=== PATIENT | male | born 1970 | race Caucasian/White ===

== ENCOUNTER → 2018-10-07 | Outpatient (REF) | payer MEDICAID ==
[2018-10-07 13:45] LABS: BASO % 0.7 % (0.0-1.0); EOS # 0.2 10^3/uL (0.0-0.50); EOS % 2.8 % (0.0-3.0); HEMATOCRIT 45.4 % (42.0-52.0); HEMOGLOBIN 15.2 g/dl (13.5-17.5); LYMPH # 1.2 10^3/uL (1.5-4.5); LYMPH % 20.1 % (24.0-44.0); MEAN CORPUSCULAR HEMOGLOBIN 32.5 pg (27.0-33.0); MEAN CORPUSCULAR HGB CONC 33.5 g/dl (32.0-36.5); MONO # 0.6 10^3/uL (0.0-0.8); MONO % 9.7 % (0.0-5.0); NEUTROPHILS % 66.2 % (36.0-66.0); PLATELET COUNT, AUTOMATED 206 10^3/uL (150-450); RED BLOOD COUNT 4.68 10^6/uL (4.30-6.10)
[2018-10-07 14:18] LABS: ALBUMIN 3.6 GM/DL (3.2-5.2); ALT/SGPT 59 U/L (12-78); BILIRUBIN,TOTAL 0.4 MG/DL (0.2-1.0); BLOOD UREA NITROGEN 14 MG/DL (7-18); CALCIUM LEVEL 8.6 MG/DL (8.5-10.1); CARBON DIOXIDE LEVEL 29 MEQ/L (21-32); CHLORIDE LEVEL 100 MEQ/L (98-107); CHOLESTEROL LEVEL 174 MG/DL (<200); CHOLESTEROL RISK RATIO 3.866 (<5); CPK CREATINE PHOSPHOKINASE 141 U/L (39-308); CREATININE FOR GFR 0.78 MG/DL (0.70-1.30); FREE T4 1.23 NG/DL (0.76-1.46); GLOMERULAR FILTRATION RATE > 60.0 (>56); GLUCOSE, FASTING 184 MG/DL (70-100); HDL CHOLESTEROL 45 MG/DL (>40); LDL CHOLESTEROL 95 MG/DL (<100); NON-HDL-C 129 MG/DL; POTASSIUM SERUM 4.6 MEQ/L (3.5-5.1); SODIUM LEVEL 137 MEQ/L (136-145); TOTAL PROTEIN 7.8 GM/DL (6.4-8.2); TRIGLYCERIDES LEVEL 168 MG/DL (<150)
[2018-10-07 14:19] LABS: HEMOGLOBIN A1c 8.4 %
== END ==
LOC: M SFHCPLAZ 11:49
PROVIDERS: ATTEND Physician Assistant Medical
DX: E78.2 Mixed hyperlipidemia (principal); E03.9 Hypothyroidism, unspecified; I10 Essential (primary) hypertension; E11.9 Type 2 diabetes mellitus without complications

== ENCOUNTER → 2018-10-15 | Outpatient (REF) | payer MEDICAID ==
[2018-10-15 13:30] LABS: APPEARANCE, URINE CLEAR (CLEAR); BACTERIA, URINE AUTO NEGATIVE (NEGATIVE); BILIRUBIN, URINE AUTO NEGATIVE (NEGATIVE); BLOOD, URINE BLOOD NEGATIVE (NEGATIVE); COLOR, URINE YELLOW (YELLOW); GLUCOSE, URINE (UA) AUTO NEGATIVE (NEGATIVE); KETONE, URINE AUTO NEGATIVE (NEGATIVE); LEUKOCYTE ESTERASE, URINE AUTO NEGATIVE (NEGATIVE); NITRITE, URINE AUTO NEGATIVE (NEGATIVE); PROTEIN, URINE AUTO NEGATIVE (NEGATIVE); RBC, URINE AUTO 0 /HPF (0-3); SPECIFIC GRAVITY URINE AUTO 1.014 (1.002-1.035); SQUAMOUS EPITHELIAL CELL UR AU 0 /HPF (0-6); WBC, URINE AUTO 0 /HPF (0-3)
== END ==
LOC: M LAB REF 12:45
PROVIDERS: ATTEND Physician Assistant Medical
DX: R36.1 Hematospermia (principal)

== ENCOUNTER → 2018-10-29 | Outpatient (CLI) | payer MEDICAID, OTHER ==
--- NOTE | 2018-10-29 11:48 | REP ---
Clinical: Cough . Comparison: None . Technique: PA and lateral. Findings: The mediastinum and cardiac silhouette are normal. The lung goodson are clear and without acute consolidation, effusion, or pneumothorax. The skeletal structures are intact and normal. Impression: 1. No acute cardiopulmonary process. Electronically Signed by Steve Crandall MD 10/29/2018 11:40 A
== END ==
LOC: M SMT 11:17
PROVIDERS: ATTEND Physician Assistant Medical
DX: R05 Cough (principal)

== ENCOUNTER → 2018-11-10 | Outpatient (CLI) | payer OTHER ==
[~2018-11-10] MED LIST: E-Z-GAS II EFFERVESCENT PACKET (SODIUM BICARB./CITRIC ACID/SIMETHICONE) As Ordered ONE; E-Z-HD 98% w/w 340GM SUSP BTL As Ordered ONE; E-Z-PAQUE 96% w/w SUSP 176GM BTL As Ordered ONE
--- NOTE | 2018-11-10 20:38 | REP ---
Examination Requested: Upper G.I. Series With KUB Reason For Exam: Oral phase dysphasia Upper GI Air Contrast The procedure was performed by VIN Richards, under the direct supervision of Dr. Hager. The images were reviewed with Dr. Hager. The algologist film shows no organomegaly or pathological masses. The intestinal gas pattern appears normal. Liquid barium and gas producing crystals were given in the erect position as well as liquid barium in the prone oblique position in order to perform a double contrast upper GI examination. The oral and pharyngeal stages of deglutition were unremarkable. There are osteophytes of the C5/C6 vertebral bodies indenting the posterior aspect of the esophagus. Esophageal transport is efficient and there is no esophagitis, stricture, or mucosal ring noted. There is no hiatal hernia. Gastroesophageal reflux was visualized to the level of the brennon. The stomach ng are normally outlined. The rugal folds are smooth and regular. There is no gastritis, neoplasm, ulcer disease noted. The duodenal ng are normally outlined. The mucosal folds are smooth and regular. There is no duodenitis, peptic ulcer disease, or neoplasm noted. The visualized portion of the proximal small bowel appears normal in course and caliber. Impression: 1. Gastroesophageal reflux to the level of the brennon. 2. C5/C6 osteophytes indenting the posterior wall of the esophagus. 0.6 minutes of fluoroscopy time was utilized for this procedure. Some fluoroscopic images are performed with last image hold technology. These images require no additional radiation. Reviewed by VIN Burroughs 11/10/2018 03:22 P Electronically Signed by Andrés Hager MD 11/10/2018 08:28 P
== END ==
LOC: M RAD 08:22
PROVIDERS: ATTEND Physician Assistant Medical
DX: R13.11 Dysphagia, oral phase (principal); K21.9 Gastro-esophageal reflux disease without esophagitis; K22.8 Other specified diseases of esophagus

== ENCOUNTER → 2019-01-02 | Outpatient (CLI) | payer OTHER ==
--- NOTE | 2019-01-05 23:21 | SLEEPCENT ---
DATE OF PROCEDURE: 01/02/2019 Ordered by: CANDY Sawyer Nocturnal polysomnography was performed for the titration of pressure therapy in this patient with obstructive sleep apnea syndrome. Apnea-hypopnea index 41.4. For testing, a [employer] [place] full face mask of large size was used, 4 cm of water pressure were applied to the circuit and the lights were extinguished. 7 hours and 14 minutes of data were reviewed. There were 378.5 minutes of sleep identified. Sleep latency was normal at 12.5 minutes. REM latency was short at 45.5 minutes. Sleep architecture was good with three REM cycles. Overall sleep efficiency was 88.4%. The electrocardiogram showed a sinus rhythm with an average heart rate of 54 beats per minute. EEG showed reasonably normal waveforms for awake and sleep. Respiratory events were fully palliated with C-PAP at a pressure of 16. There was minimal limb activity and remaining measures of sleep physiology were normal. IMPRESSION Obstructive sleep apnea syndrome (G47.33) RECOMMENDATIONS Nightly use of pressure therapy 15 cm of water.
== END ==
LOC: M SLEEP 20:00
PROVIDERS: ATTEND Nurse Practitioner Family
DX: G47.33 Obstructive sleep apnea (adult) (pediatric) (principal)

== ENCOUNTER → 2019-02-04 | Outpatient (REF) | payer OTHER ==
[2019-02-04 18:20] LABS: HEMOGLOBIN A1c 8.1 %
[2019-02-04 18:33] LABS: ALBUMIN 4.2 GM/DL (3.2-5.2); ALT/SGPT 79 U/L (12-78); BILIRUBIN,TOTAL 0.8 MG/DL (0.2-1.0); BLOOD UREA NITROGEN 18 MG/DL (7-18); CALCIUM LEVEL 9.2 MG/DL (8.5-10.1); CARBON DIOXIDE LEVEL 28 MEQ/L (21-32); CHLORIDE LEVEL 100 MEQ/L (98-107); CREATININE FOR GFR 0.86 MG/DL (0.70-1.30); GLOMERULAR FILTRATION RATE > 60.0 (>56); GLUCOSE, FASTING 111 MG/DL (70-100); POTASSIUM SERUM 4.7 MEQ/L (3.5-5.1); SODIUM LEVEL 136 MEQ/L (136-145); TOTAL PROTEIN 7.9 GM/DL (6.4-8.2)
== END ==
LOC: M SFHCPLAZ 15:42
PROVIDERS: ATTEND Physician Assistant Medical
DX: E11.9 Type 2 diabetes mellitus without complications (principal)

== ENCOUNTER → 2019-02-14 | Outpatient (CLI) | payer OTHER ==
--- NOTE | 2019-02-15 08:22 | REP ---
Clinical: Elevated liver function tests. Technique: Real time infante scale ultrasound examination using curved array transducer. Findings: Liver is increased echogenicity with decreased through transmission suggesting fatty infiltration and/or hepatocellular disease. No focal hepatic lesion identified. The pancreas is incompletely evaluated but visualized portions appear normal. The gallbladder is unremarkable and without gallstones, wall thickening, or pericholecystic fluid. No biliary ductal dilatation is appreciated and the common bile duct measures 2.6 mm diameter. Right kidney is normal in reniform shape and measures 12.6 x 5.5 x 6.3 cm without hydronephrosis. Impression: Hepatosteatosis/hepatocellular disease. No focal hepatic lesion identified. Electronically Signed by Steve Crandall MD 02/15/2019 08:13 A
== END ==
LOC: M RAD 08:17
PROVIDERS: ATTEND Physician Assistant Medical
DX: R94.5 Abnormal results of liver function studies (principal)

== ENCOUNTER → 2019-05-02 | Outpatient (REF) | payer OTHER ==
[2019-05-02 18:45] LABS: ALBUMIN 3.9 GM/DL (3.2-5.2); ALT/SGPT 41 U/L (12-78); BILIRUBIN,TOTAL 0.6 MG/DL (0.2-1.0); BLOOD UREA NITROGEN 16 MG/DL (7-18); CALCIUM LEVEL 9.3 MG/DL (8.5-10.1); CARBON DIOXIDE LEVEL 26 MEQ/L (21-32); CHLORIDE LEVEL 102 MEQ/L (98-107); CK-MB VALUE MASS 1.6 NG/ML (<3.6); CPK CREATINE PHOSPHOKINASE 162 U/L (39-308); CREATININE FOR GFR 0.86 MG/DL (0.70-1.30); GLOMERULAR FILTRATION RATE > 60.0 (>56); GLUCOSE, FASTING 80 MG/DL (70-100); MB/CK RELATIVE INDEX 0.99 (< OR =4); POTASSIUM SERUM 4.4 MEQ/L (3.5-5.1); SODIUM LEVEL 137 MEQ/L (136-145); TROPONIN I < 0.02 NG/ML (< 0.10)
[2019-05-02 18:57] LABS: HEMOGLOBIN A1c 7.2 %
[2019-05-06 12:41] LABS: HEPATITIS A ANTIBODY IGM NEGATIVE (NEGATIVE); HEPATITIS B SURFACE ANTIBODY NEGATIVE (POSITIVE); HEPATITIS B SURFACE ANTIGEN NEGATIVE (NEGATIVE); HEPATITIS C VIRUS ABY INDEX 0.2 INDEX (<0.8)
[2019-05-06 14:07] LABS: AFP TUMOR TOTAL 1.4 ng/mL (0.0-8.0); HEPATITIS A IgG TOTAL Negative (Negative)
== END ==
LOC: M SFHCPLAZ 15:39
PROVIDERS: ATTEND Physician Assistant Medical
DX: R94.5 Abnormal results of liver function studies (principal); E11.9 Type 2 diabetes mellitus without complications; R07.9 Chest pain, unspecified

== ENCOUNTER → 2019-10-03 | Outpatient (REF) | payer OTHER ==
[2019-10-03 15:39] LABS: BASO # 0.1 10^3/uL (0.0-0.2); BASO % 1.1 % (0.0-1.0); EOS # 0.1 10^3/uL (0.0-0.5); EOS % 2.3 % (0.0-3.0); HEMATOCRIT 45.6 % (42.0-52.0); HEMOGLOBIN 14.8 g/dl (13.5-17.5); LYMPH # 1.4 10^3/uL (1.5-5.0); LYMPH % 25.1 % (24.0-44.0); MEAN CORPUSCULAR HEMOGLOBIN 30.1 pg (27.0-33.0); MEAN CORPUSCULAR HGB CONC 32.5 g/dl (32.0-36.5); MEAN CORPUSCULAR VOLUME 92.9 fl (80.0-96.0); MONO # 0.7 10^3/uL (0.0-0.8); MONO % 11.8 % (0.0-5.0); NEUTROPHILS # 3.4 10^3/uL (1.5-8.5); NEUTROPHILS % 59.3 % (36.0-66.0); PLATELET COUNT, AUTOMATED 215 10^3/uL (150-450); RED BLOOD COUNT 4.91 10^6/uL (4.30-6.10); WHITE BLOOD COUNT 5.7 10^3/uL (4.0-10.0)
[2019-10-03 15:58] LABS: HEMOGLOBIN A1c 8.4 %
[2019-10-03 16:19] LABS: ALBUMIN 3.8 GM/DL (3.2-5.2); ALT/SGPT 62 U/L (12-78); BILIRUBIN,TOTAL 0.4 MG/DL (0.2-1.0); BLOOD UREA NITROGEN 14 MG/DL (7-18); CALCIUM LEVEL 9.1 MG/DL (8.5-10.1); CARBON DIOXIDE LEVEL 32 MEQ/L (21-32); CHLORIDE LEVEL 102 MEQ/L (98-107); CREATININE FOR GFR 0.98 MG/DL (0.70-1.30); FREE T4 1.29 NG/DL (0.76-1.46); GLOMERULAR FILTRATION RATE > 60.0 (>56); GLUCOSE, FASTING 185 MG/DL (70-100); POTASSIUM SERUM 4.5 MEQ/L (3.5-5.1); SODIUM LEVEL 139 MEQ/L (136-145); TOTAL PROTEIN 7.2 GM/DL (6.4-8.2)
[2019-10-03 16:22] LABS: MAU/CREAT RATIO 10.9 MCG/MG (0.0-30.0)
== END ==
LOC: M SFHCPLAZ 13:57
PROVIDERS: ATTEND Physician Assistant Medical
DX: E78.2 Mixed hyperlipidemia (principal); I10 Essential (primary) hypertension; E03.9 Hypothyroidism, unspecified; E11.9 Type 2 diabetes mellitus without complications

== ENCOUNTER → 2020-04-07 | Outpatient (CLI) | payer OTHER ==
[~2020-04-07] MED LIST changes: +ALOG6.25; +ATOR1TAB19; -E-Z-GAS II EFFERVESCENT PACKET (SODIUM BICARB./CITRIC ACID/SIMETHICONE) As Ordered ONE; -E-Z-HD 98% w/w 340GM SUSP BTL As Ordered ONE; -E-Z-PAQUE 96% w/w SUSP 176GM BTL As Ordered ONE; +EUTH75TA; +GLIM4TAB5; +LISI-538; +METF-838; +OMEP-221; +TRUL10IN
== END ==
LOC: M LABSMTC 12:13
PROVIDERS: ATTEND Anesthesiology
DX: Z01.812 Encounter for preprocedural laboratory examination (principal); Z20.828 Contact with and (suspected) exposure to other viral communicable diseases

== ENCOUNTER 2020-04-12 07:38 | Day surgery (SDC) | payer OTHER ==
[~2020-04-12] VITALS: Ht 175.3 cm; Wt 126.6 kg
[~2020-04-12 07:38] MED LIST changes: +LIDOCAINE 2% 100MG/5ML SDV (FOR ANES.) As Ordered ONE; +NS 1,000 ML IV ONE; +fentaNYL 100 MCG/2 ML INJECTION (J3010) As Ordered ONE; +propofoL 200 MG/20 ML VIAL As Ordered ONE
--- NOTE | 2020-04-12 08:48 | ROOR ---
Patient Name: Filemon Pinto Procedure Date: 04/12/2020 8:31 AM Date of : 1970 Age: 50 Room: [facility] Gender: Male Note Status: Finalized Procedure: Upper GI endoscopy Indications: Heartburn, Suspected esophageal reflux Providers: Scotty Alexander Jr, MD Referring MD: Mica SANCHEZ Requesting Provider: Medicines: Propofol per Anesthesia Complications: No immediate complications. Procedure: Pre-Anesthesia Assessment: - Prior to the procedure, a History and Physical was performed, and patient medications and allergies were reviewed. The patient is competent. The risks and benefits of the procedure and the sedation options and risks were discussed with the patient. All questions were answered and informed consent was obtained. Patient identification and proposed procedure were verified by the physician and the nurse in the pre-procedure area and in the procedure room. Mental Status Examination: alert and oriented. Airway Examination: normal oropharyngeal airway and neck mobility. Respiratory Examination: clear to auscultation. CV Examination: normal. ASA Grade Assessment: II - A patient with mild systemic disease. After reviewing the risks and benefits, the patient was deemed in satisfactory condition to undergo the procedure. The anesthesia plan was to use moderate sedation / analgesia (conscious sedation). Immediately prior to administration of medications, the patient was re-assessed for adequacy to receive sedatives. The heart rate, respiratory rate, oxygen saturations, blood pressure, adequacy of pulmonary ventilation, and response to care were monitored throughout the procedure. The physical status of the patient was re-assessed after the procedure. The Endoscope was introduced through the mouth, and advanced to the second part of duodenum. The upper GI endoscopy was accomplished without difficulty. The patient tolerated the procedure well. Findings: The upper third of the esophagus, middle third of the esophagus and lower third of the esophagus were normal. The cardia, gastric fundus, gastric body, gastric antrum, prepyloric region of the stomach and pylorus were normal. The duodenal bulb, first portion of the duodenum and second portion of the duodenum were normal. Impression: - Normal upper third of esophagus, middle third of esophagus and lower third of esophagus. - Normal cardia, gastric fundus, gastric body, antrum, prepyloric region of the stomach and pylorus. - Normal duodenal bulb, first portion of the duodenum and second portion of the duodenum. - No specimens collected. Recommendation: - Discharge patient to home (ambulatory). - Return to primary care physician as previously scheduled. Procedure Code(s): --- Professional --- 58392, Esophagogastroduodenoscopy, flexible, transoral; diagnostic, including collection of specimen(s) by brushing or washing, when performed (separate procedure) Diagnosis Code(s): --- Professional --- R12, Heartburn CPT copyright 2019 [employer]. All rights reserved. The codes documented in this report are preliminary and upon assistant clinical director review may be revised to meet current compliance requirements. Scotty Alexander MD Scotty Alexander Jr, MD 04/12/2020 8:48:25 AM Electronically signed by Scotty Alexander Jr, MD Number of Addenda: 0 Note Initiated On: 04/12/2020 8:31 AM Estimated Blood Loss: Estimated blood loss: none.
--- NOTE | 2020-04-12 09:03 | ROOR ---
Patient Name: Filemon Pinto Procedure Date: 04/12/2020 8:32 AM Date of : 1970 Age: 50 Room: [facility] Gender: Male Note Status: Finalized Procedure: Colonoscopy Indications: Screening for colorectal malignant neoplasm Providers: Scotty Alexander Jr, MD Referring MD: Mica SANCHEZ Requesting Provider: Medicines: Propofol per Anesthesia Complications: No immediate complications. Procedure: Pre-Anesthesia Assessment: - Prior to the procedure, a History and Physical was performed, and patient medications and allergies were reviewed. The patient is competent. The risks and benefits of the procedure and the sedation options and risks were discussed with the patient. All questions were answered and informed consent was obtained. Patient identification and proposed procedure were verified by the physician and the nurse in the pre-procedure area and in the procedure room. Mental Status Examination: alert and oriented. Airway Examination: normal oropharyngeal airway and neck mobility. Respiratory Examination: clear to auscultation. CV Examination: normal. ASA Grade Assessment: II - A patient with mild systemic disease. After reviewing the risks and benefits, the patient was deemed in satisfactory condition to undergo the procedure. The anesthesia plan was to use moderate sedation / analgesia (conscious sedation). Immediately prior to administration of medications, the patient was re-assessed for adequacy to receive sedatives. The heart rate, respiratory rate, oxygen saturations, blood pressure, adequacy of pulmonary ventilation, and response to care were monitored throughout the procedure. The physical status of the patient was re-assessed after the procedure. The Colonoscope was introduced through the anus and advanced to the cecum, identified by appendiceal orifice and ileocecal valve. The colonoscopy was performed without difficulty. The patient tolerated the procedure well. The quality of the bowel preparation was adequate. Findings: The rectum, sigmoid colon, descending colon, transverse colon, ascending colon, cecum, appendiceal orifice and ileocecal valve appeared normal. Two polyps were found in the recto-sigmoid colon. The polyps were small in size. These polyps were removed with a cold snare. Resection and retrieval were complete. Impression: - The rectum, sigmoid colon, descending colon, transverse colon, ascending colon, cecum, appendiceal orifice and ileocecal valve are normal. - Two small polyps at the recto-sigmoid colon, removed with a cold snare. Resected and retrieved. Recommendation: - Repeat colonoscopy in 5-10 years for surveillance based on pathology results. - Discharge patient to home (ambulatory). Procedure Code(s): --- Professional --- 91082, Colonoscopy, flexible; with removal of tumor(s), polyp(s), or other lesion(s) by snare technique Diagnosis Code(s): --- Professional --- Z12.11, Encounter for screening for malignant neoplasm of colon K63.5, Polyp of colon CPT copyright 2019 [employer]. All rights reserved. The codes documented in this report are preliminary and upon sample steamer review may be revised to meet current compliance requirements. Scotty Alexander MD Scotty Alexander Jr, MD 04/12/2020 9:02:54 AM Electronically signed by Scotty Alexander Jr, MD Number of Addenda: 0 Note Initiated On: 04/12/2020 8:32 AM Estimated Blood Loss: Estimated blood loss: none.
[2020-04-12 09:27] VITALS: BP 123/75
== END 2020-04-12 09:30 | disposition home or self-care (01) ==
LOC: M OPP 07:38
PROVIDERS: ATTEND Surgery
DX: Z12.11 Encounter for screening for malignant neoplasm of colon (principal); K21.9 Gastro-esophageal reflux disease without esophagitis; D12.6 Benign neoplasm of colon, unspecified; I10 Essential (primary) hypertension; E78.5 Hyperlipidemia, unspecified; E11.9 Type 2 diabetes mellitus without complications; E03.9 Hypothyroidism, unspecified; G47.33 Obstructive sleep apnea (adult) (pediatric); Z79.84 Long term (current) use of oral hypoglycemic drugs; Z79.899 Other long term (current) drug therapy
CPT/HCPCS: 43235; 45380; 88305; J3010